=== PATIENT | female | born 1955 | race Caucasian/White ===

== ENCOUNTER 2016-12-03 09:13 | Emergency (ER) | payer BC ==
[~2016-12-03] VITALS: Ht 165.1 cm; Wt 55.6 kg
[2016-12-03 09:21] VITALS: BP 147/82; PULSE 80; RESP 16; TEMP 97.5; O2SAT 100
[2016-12-03] MEDS ORDERED: DESV25TA PO (09:39)
[2016-12-03] MEDS ORDERED: BUTA1CAP PO (09:39)
[2016-12-03] MEDS ORDERED: ESTR.625 PO (09:39)
[2016-12-03] MEDS ORDERED: SODIUM CHLORIDE 0.9% FLUSH 10 ML FLUSH IVF PRN (09:45)
[2016-12-03] MEDS ORDERED: PROCHLORPERAZINE INJ 10 MG/2 ML VIAL IVP ONE (09:45)
[2016-12-03] MEDS ORDERED: diphenhydrAMINE HCL 50 MG/ML VIAL IVP ONE (09:45)
--- NOTE | 2016-12-03 09:59 | PD ---
HPI . Elevated blood pressure Chief Complaint: Headache Time Seen by Provider: 09:44 Travel History International Travel<30 days: No Contact w/Intl Traveler<30days: No Traveled to known affect area: No History of Present Illness HPI Patient presents with the chief complaint of elevated blood pressure for the last 3 days. She reports that she has had a lot of family stress lately. She reports that she has been monitoring her blood pressure and that it has been gradually increasing over the last 3 days. She states that she awakened today with a headache. She describes the headache as frontal and radiating to both jaws. She describes it as a rushing sensation. She rates it as 7/10. She has not noted any modifying factors. She states that she has some nausea and that her vision seems different. She has not tried any oqhu-wyb-inbhcmc medications for her symptoms. PFSH Past Medical History Diminished Hearing: No Headaches: Yes (MIGRAINES) Medical other: Yes (MITRAL VALVE PROLAPSE) Tetanus Vaccination: < 5 Years ?: Not Past Surgical History Appendectomy: Yes Hysterectomy: Yes Oral Surgery: Yes (WISDOM TEETH) Tonsillectomy: Yes Other Surgery: Yes (SEPTOTOMY, 2 INCISIONAL HERNIAS) Social History Alcohol Use: Yes (OCC) Tobacco Use: No Substance Use: No Allergies-Medications (Allergen,Severity, Reaction): Coded Allergies: Latex (Verified Allergy, Severe, Anaphylaxis, 12/03/16) Codeine (Verified Allergy, Intermediate, n/v and dizziness, 12/03/16) Uncoded Allergies: all mycins (Allergy, Severe, Anaphylaxis, 12/03/16) all codone products (Allergy, Intermediate, n/v and dizziness, 12/03/16) all cyclins (Allergy, Unknown, Anaphylaxis, 12/03/16) Reported Meds & Prescriptions Reported Meds & Active Scripts Active Reported Fioricet (Irshvqhtle-Lvdxzwchqqjri-Jnjxwlni) 50-300-40 Mg Cap 1 Cap PO Q4H PRN Premarin (Estrogens Conjugated) 0.625 Mg Tab 0.625 Mg PO DAILY Pristiq 24 HR (Desvenlafaxine ER 24 HR) 25 Mg Tab 6.25 Mg PO DAILY Review of Systems Except as stated in HPI: all other systems reviewed are Neg Eyes: Positive: Visual changes HENT: Positive: Headaches Gastrointestinal: Positive: Nausea Physical Exam Narrative Vital Signs Date Time Temp Pulse Resp B/P Pulse Ox O2 Delivery O2 Flow Rate FiO2 12/03/16 09:29 16 100 Room Air 12/03/16 09:21 97.5 80 16 147/82 100 GENERAL: Awake and alert and in no acute distress. SKIN: Warm and dry. HEAD: Atraumatic. Normocephalic. EYES: Pupils equal and round. Extraocular movements are intact. NECK: Trachea midline. Neck is supple. CARDIOVASCULAR: Regular rate and rhythm. RESPIRATORY: No accessory muscle use. MUSCULOSKELETAL: No obvious deformities. No edema. NEUROLOGICAL: Awake and alert. No obvious cranial nerve deficits. Motor grossly within normal limits. Normal speech. Gait is normal. Finger-nose- finger exam was intact. PSYCHIATRIC: Appropriate mood and affect; insight and judgment normal. Anxious about her blood pressure. Data Data Last Documented VS Vital Signs Date Time Temp Pulse Resp B/P Pulse Ox O2 Delivery O2 Flow Rate FiO2 12/03/16 09:29 16 100 Room Air 12/03/16 09:21 97.5 80 147/[address] Brain W/O Iv Contrast(Rout) (12/03/16 09:44) Iv Access Insert/Monitor (12/03/16 09:44) Sodium Chloride 0.9% Flush (Ns Flush) (12/03/16 09:45) Prochlorperazine Inj (Compazine Inj) (12/03/16 09:45) Diphenhydramine Inj (Benadryl Inj) (12/03/16 09:45) MDM Medical Decision Making Medical Screen Exam Complete: Yes Emergency Medical Condition: Yes Differential Diagnosis Differential diagnosis of headache includes but is not limited to migraine, muscle contraction headache, brain tumor, brain bleed Narrative Course Patient presents with the chief complaint of elevated blood pressure. She is also complaining with a frontal headache. Her neurological exam is normal. She does not have any meningeal signs. She has no lateralizing neurological signs or symptoms. She is anxious about her blood pressure. Last Impressions Head CT 12/03/16943 Signed Impressions: Service Date/Time: Tuesday, December 03, 2016 10:05 - CONCLUSION: No acute disease. Juan Cueva MD Patient reports her headache is improving. Vital Signs Date Time Temp Pulse Resp B/P Pulse Ox O2 Delivery O2 Flow Rate FiO2 12/03/16 09:29 16 100 Room Air 12/03/16 09:21 97.5 80 16 147/82 100 Diagnosis Primary Impression: Headache Qualified Code: G44.209 - Acute non intractable tension-type headache Patient Instructions: Acute Headache (DC), General Instructions Disposition: 01 DISCHARGE HOME Condition: Stable Justine Esparza MD Dec 03, 2016 09:59
--- NOTE | 2016-12-03 10:26 | RADHPO ---
EXAM DATE/TIME: 12/03/2016 10:05 [facility] COMPARISON: No previous studies available for comparison. INDICATIONS : Cephalgia. RADIATION DOSE: 64.42 CTDIvol (mGy) MEDICAL HISTORY : Diabetes mellitus type 2. SURGICAL HISTORY : Appendectomy. Hysterectomy. ENCOUNTER: Initial ACUITY: 1 day PAIN SCALE: 4/10 LOCATION: cranial TECHNIQUE: Multiple contiguous axial images were obtained of the head. Using automated exposure control and adj ustment of the mA and/or kV according to patient size, radiation dose was kept as low as reasonably a chievable to obtain optimal diagnostic quality images. FINDINGS: CEREBRUM: The ventricles are normal for age. No evidence of midline shift, mass lesion, hemorrhage or acute in farction. No extra-axial fluid collections are seen. POSTERIOR FOSSA: The cerebellum and brainstem are intact. The 4th ventricle is midline. The cerebellopontine angle i s unremarkable. EXTRACRANIAL: The visualized portion of the orbits is intact. SKULL: The calvaria is intact. No evidence of skull fracture. CONCLUSION: No acute disease. Juan Cueva MD on December 03, 2016 at 10:23 Board Certified Radiologist. This report was verified electronically.
[2016-12-03 11:20] VITALS: BP 145/62; PULSE 70; RESP 14; O2SAT 100
== END 2016-12-03 11:25 | disposition home or self-care (01) ==
LOC: PHED 09:13
DX: R51 Headache (principal); I34.1 Nonrheumatic mitral (valve) prolapse
CPT/HCPCS: 70450; 96374; 96375; 99285; J0780; J1200

== ENCOUNTER 2016-12-12 12:10 | Emergency (ER) | payer BC ==
[~2016-12-12] VITALS: Ht 165.1 cm; Wt 65.0 kg
[~2016-12-12 12:10] MED LIST: BUTA1CAP PO; DESV25TA PO; ESTR.625 PO
[2016-12-12 12:17] VITALS: BP 148/84; PULSE 66; PULSE 68; RESP 16; RESP 20; TEMP 98.1; O2SAT 99
--- NOTE | 2016-12-12 12:38 | PD ---
HPI Chief Complaint: Chest Pain Time Seen by Provider: 12:25 Travel History International Travel<30 days: No Contact w/Intl Traveler<30days: No Traveled to known affect area: No History of Present Illness HPI WHILE COOKING AT HOME, DEVELOPED CP "VICE" LIKE RAD TO BACK, 02/27 BUT CURRENTLY NO CP BUT BACK PAIN 11/27, NO RELIEVING/AGGRAVATING FACTORS PFSH Past Medical History Hx Anticoagulant Therapy: No Cardiovascular Problems: Yes (MITRAL VALVE PROLAPSE ) Diabetes: No Diminished Hearing: No Headaches: Yes (MIGRAINES) Medical other: Yes (NEUROMITOSIS) Immunizations Current: No Tetanus Vaccination: Unknown Influenza Vaccination: No ?: Not Menopausal: Yes Past Surgical History Appendectomy: Yes Hysterectomy: Yes Oral Surgery: Yes (WISDOM TEETH) Tonsillectomy: Yes Other Surgery: Yes (SEPTOTOMY, 2 INCISIONAL HERNIAS) Social History Alcohol Use: Yes (OCC) Tobacco Use: No Substance Use: No Allergies-Medications (Allergen,Severity, Reaction): Coded Allergies: Latex (Verified Allergy, Severe, Anaphylaxis, 12/03/16) Codeine (Verified Allergy, Intermediate, n/v and dizziness, 12/03/16) Uncoded Allergies: all mycins (Allergy, Severe, Anaphylaxis, 12/03/16) all codone products (Allergy, Intermediate, n/v and dizziness, 12/03/16) all cyclins (Allergy, Unknown, Anaphylaxis, 12/03/16) Reported Meds & Prescriptions Reported Meds & Active Scripts Active Reported Fioricet (Cuhgugubrr-Ohtoewqknsykw-Auuaawde) 50-300-40 Mg Cap 1 Cap PO Q4H PRN Premarin (Estrogens Conjugated) 0.625 Mg Tab 0.625 Mg PO DAILY Pristiq 24 HR (Desvenlafaxine ER 24 HR) 25 Mg Tab 6.25 Mg PO DAILY Review of Systems Cardiovascular: Positive: Chest Pain or Discomfort (RAD TO BACK FROM RUQ/EPIG REGION) Physical Exam Narrative GENERAL: SKIN: Warm and dry. HEAD: Atraumatic. Normocephalic. EYES: Pupils equal and round. No scleral icterus. No injection or drainage. ENT: No nasal bleeding or discharge. Mucous membranes pink and moist. NECK: Trachea midline. No JVD. CARDIOVASCULAR: Regular rate and rhythm. RESPIRATORY: No accessory muscle use. Clear to auscultation. Breath sounds equal bilaterally. GASTROINTESTINAL: Abdomen soft, non-tender, nondistended. Hepatic and splenic margins not palpable. MUSCULOSKELETAL: Extremities without clubbing, cyanosis, or edema. No obvious deformities. NEUROLOGICAL: Awake and alert. No obvious cranial nerve deficits. Motor grossly within normal limits. Five out of 5 muscle strength in the arms and legs. Normal speech. PSYCHIATRIC: Appropriate mood and affect; insight and judgment normal. Data Data Last Documented VS Vital Signs Date Time Temp Pulse Resp B/P Pulse Ox O2 Delivery O2 Flow Rate FiO2 12/12/16 16:00 66 15 118/66 100 Room Air 12/12/16 12:17 98.1 Orders Electrocardiogram (12/12/16 12:25) Complete Blood Count With Diff (12/12/16 12:25) Comprehensive Metabolic Panel (12/12/16 12:25) Ckmb (Isoenzyme) Profile (12/12/16 12:25) Troponin I (12/12/16 12:25) B-Type Natriuretic Peptide (12/12/16 12:25) Prothrombin Time / Inr (Pt) (12/12/16 12:25) Act Partial Throm Time (Ptt) (12/12/16 12:25) Lipase (12/12/16 12:25) Iv Access Insert/Monitor (12/12/16 12:25) Ecg Monitoring (12/12/16 12:25) Oximetry (12/12/16 12:25) Cta Thor Abd Aorta W Iv C W3d (12/12/16 12:25) Iohexol 350 Inj (Omnipaque 350 Inj) (12/12/16 14:13) Ondansetron Inj (Zofran Inj) (12/12/16 15:00) Morphine Inj (Morphine Inj) (12/12/16 15:00) Labs Laboratory Tests Test 12/12/16 12:46 White Blood Count 5.8 TH/MM3 Red Blood Count 4.07 MIL/MM3 Hemoglobin 12.8 GM/DL Hematocrit 37.3 % Mean Corpuscular Volume 91.5 FL Mean Corpuscular Hemoglobin 31.5 PG Mean Corpuscular Hemoglobin 34.4 % Concent Red Cell Distribution Width 12.3 % Platelet Count 238 TH/MM3 Mean Platelet Volume 8.4 FL Neutrophils (%) (Auto) 37.8 % Lymphocytes (%) (Auto) 51.3 % Monocytes (%) (Auto) 8.7 % Eosinophils (%) (Auto) 1.6 % Basophils (%) (Auto) 0.6 % Neutrophils # (Auto) 2.2 TH/MM3 Lymphocytes # (Auto) 3.0 TH/MM3 Monocytes # (Auto) 0.5 TH/MM3 Eosinophils # (Auto) 0.1 TH/MM3 Basophils # (Auto) 0.0 TH/MM3 CBC Comment DIFF FINAL Differential Comment Prothrombin Time 10.7 SEC Prothromb Time International 1.0 RATIO Ratio Activated Partial 27.5 SEC Thromboplast Time Sodium Level 135 MEQ/L Potassium Level 4.0 MEQ/L Chloride Level 101 MEQ/L Carbon Dioxide Level 28.6 MEQ/L Anion Gap 5 MEQ/L Blood Urea Nitrogen 11 MG/DL Creatinine 0.55 MG/DL Estimat Glomerular Filtration 113 ML/MIN Rate Random Glucose 86 MG/DL Calcium Level 8.4 MG/DL Total Bilirubin 0.3 MG/DL Aspartate Amino Transf 25 U/L (AST/SGOT) Alanine Aminotransferase 23 U/L (ALT/SGPT) Alkaline Phosphatase 75 U/L Total Creatine Kinase 74 U/L Troponin I 0.02 NG/ML B-Type Natriuretic Peptide 47 PG/ML Total Protein 6.3 GM/DL Albumin 3.5 GM/DL Lipase 144 U/L [facility] Medical Decision Making Medical Screen Exam Complete: Yes Emergency Medical Condition: Yes Medical Record Reviewed: Yes Interpretation(s) NSR, 62, NL INTERVALS, NO STEMI PATTERN NOTED Differential Diagnosis ATYPICAL TX V PE V AORTIC DISSECTION V AORTIC ANEURYSM V PNA V PANCREATITIS V GB DZ Narrative Course PATIENT IS NOW PAIN FREE AND COMFORTABLE. TOLERATED PO. DISCUSSED FULLY RESULTS OF LABS AND CAT SCAN. WILL FOLLOW UP WITH PCP. Diagnosis Primary Impression: ATYPICAL CP Patient Instructions: Chest Pain (ED), General Instructions Disposition: 01 DISCHARGE HOME Condition: Stable Gonzalez Santos MD Dec 12, 2016 12:38
[2016-12-12 12:58] LABS: AUTOMATED NEUTROPHIL # 2.2 TH/MM3 (1.8-7.7); BASOPHIL % 0.6 % (0.0-2.0); EOSINOPHIL # 0.1 TH/MM3 (0-0.4); EOSINOPHIL % 1.6 % (0.0-4.0); HEMATOCRIT 37.3 % (35.0-46.0); HEMO FLAGS DIFF FINAL; LYMPH % 51.3 % (9.0-44.0); MEAN CELL VOLUME 91.5 FL (80.0-100.0); MEAN CORPUSCULAR HEMOGLOBIN 31.5 PG (27.0-34.0); MEAN CORPUSCULAR HGB CONC 34.4 % (32.0-36.0); MONO % 8.7 % (0.0-8.0); NEUT % 37.8 % (16.0-70.0); PLATELET COUNT 238 TH/MM3 (150-450); RED BLOOD COUNT 4.07 MIL/MM3 (4.00-5.30); RED CELL DISTRIBUTION WIDTH 12.3 % (11.6-17.2); WHITE BLOOD COUNT 5.8 TH/MM3 (4.0-11.0)
[2016-12-12 13:00] VITALS: BP 125/67; PULSE 64; RESP 18; O2SAT 99
[2016-12-12 13:00] LABS: APTT (PATIENT) 27.5 SEC (24.3-30.1); PROTHROMBIN TIME - PATIENT 10.7 SEC (9.8-11.6)
[2016-12-12 13:13] LABS: ALKALINE PHOSPHATASE 75 U/L (45-117); ALT (GPT) 23 U/L (10-53); ANION GAP 5 MEQ/L (5-15); BICARBONATE 28.6 MEQ/L (21.0-32.0); BLOOD UREA NITROGEN 11 MG/DL (7-18); CHLORIDE 101 MEQ/L (98-107); GLOMERULAR FILTRATION RATE 113 ML/MIN (>89); SODIUM (NA) 135 MEQ/L (136-145); TOTAL BILIRUBIN ADULT 0.3 MG/DL (0.2-1.0)
[2016-12-12 13:14] LABS: AST (GOT) 25 U/L (15-37); CREATINE KINASE 74 U/L (26-192)
[2016-12-12 14:00] VITALS: BP 116/62; PULSE 62; RESP 25; O2SAT 100
[2016-12-12] MEDS ORDERED: IOHEXOL 350 MG/ML 10 ML VIAL (for RAD DIAG) IV ONE (14:13)
[2016-12-12] MEDS ORDERED: ONDANSETRON HCL 4 MG/2 ML VIAL IVP ONE (15:00)
[2016-12-12] MEDS ORDERED: MORPHINE SULFATE 4 MG/ML INJ IV PUSH ONE (15:00)
--- NOTE | 2016-12-12 15:11 | RADRPT ---
EXAM DATE/TIME: 12/12/2016 14:08 [facility] COMPARISON: No previous studies available for comparison. INDICATIONS : Chest pain. IV CONTRAST: 75 cc Omnipaque 350 (iohexol) IV RADIATION DOSE: 9.04 CTDIvol (mGy) MEDICAL HISTORY : Cardiovascular disease. SURGICAL HISTORY : Appendectomy. Hysterectomy.hernia repair. ENCOUNTER: Initial ACUITY: 1 day PAIN SCALE: 5/10 LOCATION: Bilateral chest TECHNIQUE: Volumetric scanning was performed using a multi-row detector CT scanner. The data was post processed with a variety of visualization algorithms including full volume maximum intensity projection, multi -planar sliding thin slab reformation, curved planar reformation, and surface rendering techniques. Using automated exposure control and adjustment of the mA and/or kV according to patient size, radiat ion dose was kept as low as reasonably achievable to obtain optimal diagnostic quality images. DICOM format image data is available electronically for review and comparison. FINDINGS: LUNGS: There several small pulmonary nodules seen bilaterally measuring no more than 5 mm. These are nonspec ific. No pleural fluid is present. MEDIASTINUM: No abnormally enlarged lymph nodes by CT criteria. No axillary or hilar abnormalities are identified. ABDOMEN: There are at least 5 hypodensities in the liver ranging in size from 0.5 cm to 1.6 cm likely related to cysts. The spleen is free of focal defects. The gallbladder and pancreas demonstrate no abnormalit y. The adrenal glands are normal. The kidneys demonstrate no evidence of solid renal mass or hydronep hrosis. No free fluid or abdominal masses are identified. No para-aortic adenopathy is seen. PELVIS: No evidence of free fluid or pelvic mass. The patient appears to be status post hysterectomy. No abno rmally enlarged inguinal or retroperitoneal lymph nodes are present. The bladder is unremarkable. THORACIC AORTA: The thoracic aortic root is normal. 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 This is a normal variant . There is no evidence of aneurysm or dissection. ABDOMINAL AORTA: The aorta is normal in caliber without aneurysm or dissection. The renal arteries are patent bilater ally. The proximal celiac and superior mesenteric arteries are patent and normal in diameter. PELVIC VESSELS: The internal iliac and external iliac vessels are patent without aneurysm or stenosis. CONCLUSION: 1. The major vessels in the chest abdomen and pelvis are normal. 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 2. Several small pulmonary nodules all measuring less than 5 mm. These are nonspecific. A followup no ncontrast CT examination in 6 month would be recommended for surveillance. 3. Several hepatic lesions likely related to cysts. Donald Hdz MD on December 12, 2016 at 14:59 Board Certified Radiologist. This report was verified electronically.
[2016-12-12 15:13] VITALS: BP 128/78; PULSE 71; RESP 21; O2SAT 100
[2016-12-12 16:00] VITALS: BP 118/66; PULSE 66; RESP 15; O2SAT 100
[2016-12-12 17:44] VITALS: BP 128/79
--- NOTE | 2016-12-14 08:42 | EKG ---
Date Performed: 12/12/2016 Time Performed: 12:20:25 PTAGE: 61 years EKG: Sinus rhythm NORMAL ECG NO PREVIOUS TRACING DOCTOR: Anusha Samaniego Interpretating Date/Time 12/14/2016 08:40:21
== END 2016-12-12 17:58 | disposition home or self-care (01) ==
LOC: NEPC 12:10
DX: R07.89 Other chest pain (principal); M54.9 Dorsalgia, unspecified; Z86.79 Personal history of other diseases of the circulatory system; Z86.69 Personal history of other diseases of the nervous system and sense organs
CPT/HCPCS: 71275; 74174; 80053; 82550; 83690; 83880; 84484; 85025; 85610; 85730; 93005; 96374; 96375; 99285; J2270; J2405; Q9967